=== PATIENT | female | born 1965 | race Caucasian/White ===

== ENCOUNTER 2019-05-24 09:51 | Outpatient (CLI) | payer BC, SELFPAY ==
--- NOTE | 2019-05-24 10:01 | XR_ITS ---
WS: [id number] KUB, 05/24/2019 Clinical Data: NEPHROLITHIASIS Comparison: None. Findings: No abnormal intraabdominal masses or calcifications are seen. There is no dilatated small bowel or ev idence of obstruction. There is a large amount of fecal material which obscures detail over the kidneys. There are clips in the right upper quadrant from a cholecystectomy. There is a gentle levoscoliosis. There are phlebolit hs in the true pelvis with a partially filled bladder. XR/XR abdomen 1V* [id number] Impression: Negative KUB.
== END 2019-05-24 09:52 | disposition home or self-care (01) ==
LOC: RAD 09:55
PROVIDERS: Family Provider Electrodiagnostic Medicine; PCP Electrodiagnostic Medicine; Visit Provider Electrodiagnostic Medicine
DX: N39.0 Urinary tract infection, site not specified (principal); N20.0 Calculus of kidney
CPT/HCPCS: 74018

== ENCOUNTER 2019-08-30 20:08 | Emergency (ER) | payer BC, SELFPAY ==
[2019-08-30 20:17] VITALS: BP 104/69; PULSE 102; RESP 18; TEMP 36.5; O2SAT 96; BMI 22.3
--- NOTE | 2019-08-30 20:33 | XR_ITS ---
WS: [id number] CHEST XRAY TECHNIQUE: Portable chest. CLINICAL INFORMATION: cough/congestion COMPARISON: March 22, 2019 FINDINGS: Heart: Normal cardiac silhouette. Lungs: Moderate chronic emphysematous changes. Mild chronic interstitial thickening. No acute pulmona ry infiltrates. Bones: Mild thoracic curve convex right. XR/XR chest 1V portable [id number] IMPRESSION: No acute chest findings
--- NOTE | 2019-08-30 20:34 | W.ED.GENADLT ---
HPI - General Adult General: Chief complaint: General Medical Stated complaint: HEART RACING/L SIDE PAIN Time Seen by Provider: 08/30/19 20:32 Source: patient Mode of arrival: ambulatory Limitations: no limitations History of Present Illness: HPI narrative: Patient is a 54-year-old female who presents to ED today with 2 separate complaints. She complains of left upper quadrant pain over the past 5 to 7 days. She states pain has been intermittent. She states pain seems to be improved with lying flat and worse with sitting up and standing. She has not noticed a correlation with eating in her pain. She describes some nausea without vomiting. She has been having normal bowel movements. She does describe some darker urine over the past few days. Patient second complaint is a complaint of heart racing and palpitations after drinking a loaded tea . She states symptoms began around 3:30 PM this afternoon. Patient denies history of heart disease. Onset (ago): day(s) Associated symptoms: Reports nausea and palpitations; Deny chest pain, dyspnea, rash, syncope or vomiting Treatments prior to arrival: none Review of Systems Const: Denies: fever or chills Eyes: Denies: change in vision, blurry vision or photophobia Card: Reports: palpitations; Denies: chest pain, irregular heart rhythm, edema, swelling of feet/ankles, lightheadedness, syncope, pre-syncope, shortness of breath on exertion, shortness of breath when lying down, leg pain with exertion or bluish discoloration of hands/feet Resp: Denies: shortness of breath, productive cough, non-productive cough, coughing up blood or chest congestion GI: Reports: abdominal pain and nausea; Denies: vomiting, vomiting blood, heartburn/indigestion, diarrhea, constipation, change in bowel habits, change in stool character, blood in stool, black tarry stool, white/light colored stool or fatty stool : Denies: flank pain, difficulty urinating, painful urination, urinary frequency, urinary urgency, urinary hesitancy, vaginal odor, vaginal bleeding or vaginal discharge Musc: Denies: neck pain or back pain Skin/Breast: Denies: rash Neuro: Denies: numbness in extremities, weakness in extremities, changes in sensation, lack of coordination, difficulty walking or dizziness PFSH ED PFSH: Social History Smoking and tobacco status: never smoked Physical Exam Const: COMMON NORMALS: no apparent distress, average body habitus, oriented x3, no limitations, healthy appearing, alert and well nourished HENMT: COMMON NORMALS: normocephalic and head/scalp atraumatic HEAD & SCALP: normocephalic and atraumatic Resp: COMMON NORMALS: normal respiratory effort and clear to auscultation bilaterally AUSCULTATION: clear to auscultation bilaterally Cardio: COMMON NORMALS: regular rate and regular rhythm RATE: regular rate RHYTHM: regular rhythm GI: COMMON NORMALS: soft to palpation, no hepatosplenomegaly and no masses AUSCULTATION: Yes normoactive bowel sounds PALPATION: Yes soft, Yes tender Details: LUQ and Yes no hepatosplenomegaly : COMMON NORMALS: Yes no CVA tenderness BLADDER/KIDNEY EXAM: Yes no CVA tenderness Back/Pelvis: COMMON NORMALS: no CVA tenderness Extremity: COMMON NORMALS: normal to inspection Neuro: EPIFANIO COMA SCALE: document GCS findings [place] coma scale eye opening: Spontaneous Epifanio coma scale verbal response: Orientated [place] coma scale motor response: Obey commands [place] coma scale total score: 15 COMMON NORMALS: oriented x3, moves all extremities, no focal motor deficits and no sensory deficits noted SENSORIUM/ORIENTATION: Yes alert Skin: COMMON NORMALS: no rashes or lesions noted GENERAL SKIN EXAM: no rashes or lesions noted Course Vital Signs: Vital signs: Vital Signs Temperature 97.7 F 08/30/19 20:17 Pulse Rate 78 08/30/19 22:53 Respiratory Rate 18 08/30/19 22:53 Blood Pressure 124/74 08/30/19 22:53 Pulse Oximetry 97 08/30/19 22:53 MDM - General Adult MDM Narrative: Medical decision making narrative: Patient's cardiac work-up here looks good. Symptoms of her palpitations started approximately 7 hours ago so there is no need for repeat troponins. She has not had sustained tachycardia (she was very mildly tachycardic initially upon arrival) or palpitations on the rhythm monitor while here. Patient's labs are overall non-concerning. She does have a mildly elevated lipase at 80. She was offered pain medications but declines these stating her pain is not severe. She is not having nausea or vomiting. Patient seems to be stable to treat at home for some mild pancreatitis. Return to ED precautions given. Lab Data: Labs: Lab Results 08/30/19 08/30/19 08/30/19 Range/Units 21:13 21:13 21:13 WBC 6.5 (4.0-10.0) 10^3/ uL RBC 3.88 L (4.1-5.3) 10^6/u L Hgb 13.1 (11.5-15.3) g/dL Hct 37.8 (37.0-47.0) % MCV 97.4 (81-99) fL MCH 33.8 (28.0-34.0) pg MCHC 34.7 (30.0-36.0) g/dL RDW 13.2 (12.1-15.1) % Plt Count 199 (130-400) 10^3/c mm MPV 10.9 H (7.4-10.4) fL Neut % (Auto) 54.3 % Lymph % (Auto) 36.2 % [place] % (Auto) 6.2 % Eos % (Auto) 2.2 % Baso % (Auto) 0.9 % Neut # (Auto) 3.5 (1.8-7.7) 10^3/u L Lymph # (Auto) 2.4 (0.8-4.8) 10^3/u L [place] # (Auto) 0.4 (0.2-0.9) 10^3/u L Eos # (Auto) 0.1 (0.0-0.8) 10^3/u L Baso # (Auto) 0.1 (0.0-0.1) 10^3/u L Nucleated RBC % (a uto) 0 % Nucleated RBCs # 0.0 /100WBC Sodium 141 (136-145) mmol/L Potassium 4.0 (3.5-5.1) mmol/L Chloride 105 (98-107) mmol/L Carbon Dioxide 23 (22-29) mmol/L Anion Gap 17.0 (5-19) BUN 16 (6-20) mg/dL Creatinine 0.9 (0.5-0.9) mg/dL GFR Calculation 65.0 L (90-130) mL/min Glucose 108 (65-115) mg/dL Calculated Osmolal ity 289 (285-295) mOsm/k g Calcium 9.5 (8.5-10.5) mg/dL Total Bilirubin 0.2 (0.15-1.2) mg/dL AST 13 (0-32) U/L ALT 9 (0-33) U/L Alkaline Phosphata se 61 (35-105) IU/L Troponin T Baselin e 7 (0-10) ng/mL Total Protein 6.1 L (6.6-8.7) g/dL Albumin 4.0 (3.5-5.2) g/dL Globulin 2.1 (1.3-4.6) g/dL Lipase 80 H (13-60) U/L Urine Color (Yellow) Urine Appearance (CLEAR) Urine pH (5-7) Ur Specific Gravit y (1.005-1.030) Urine Protein (Negative) Urine Glucose (UA) (Normal) Urine Ketones (Negative) Urine Blood (Negative) Urine Nitrate (Negative) Urine Bilirubin (NEGATIVE) Urine Urobilinogen (Negative) mg/dL Ur Leukocyte Chayito ase (Negative) 08/30/19 Range/Units 21:13 WBC (4.0-10.0) 10^3/ uL RBC (4.1-5.3) 10^6/u L Hgb (11.5-15.3) g/dL Hct (37.0-47.0) % MCV (81-99) fL MCH (28.0-34.0) pg MCHC (30.0-36.0) g/dL RDW (12.1-15.1) % Plt Count (130-400) 10^3/c mm MPV (7.4-10.4) fL Neut % (Auto) % Lymph % (Auto) % [place] % (Auto) % Eos % (Auto) % Baso % (Auto) % Neut # (Auto) (1.8-7.7) 10^3/u L Lymph # (Auto) (0.8-4.8) 10^3/u L [place] # (Auto) (0.2-0.9) 10^3/u L Eos # (Auto) (0.0-0.8) 10^3/u L Baso # (Auto) (0.0-0.1) 10^3/u L Nucleated RBC % (a uto) % Nucleated RBCs # /100WBC Sodium (136-145) mmol/L Potassium (3.5-5.1) mmol/L Chloride (98-107) mmol/L Carbon Dioxide (22-29) mmol/L Anion Gap (5-19) BUN (6-20) mg/dL Creatinine (0.5-0.9) mg/dL GFR Calculation (90-130) mL/min Glucose (65-115) mg/dL Calculated Osmolal ity (285-295) mOsm/k g Calcium (8.5-10.5) mg/dL Total Bilirubin (0.15-1.2) mg/dL AST (0-32) U/L ALT (0-33) U/L Alkaline Phosphata se (35-105) IU/L Troponin T Baselin e (0-10) ng/mL Total Protein (6.6-8.7) g/dL Albumin (3.5-5.2) g/dL Globulin (1.3-4.6) g/dL Lipase (13-60) U/L Urine Color Yellow (Yellow) Urine Appearance Clear (CLEAR) Urine pH 6 (5-7) Ur Specific Gravit y 1.020 (1.005-1.030) Urine Protein Neg (Negative) Urine Glucose (UA) Norm (Normal) Urine Ketones Negative (Negative) Urine Blood Neg (Negative) Urine Nitrate Negative (Negative) Urine Bilirubin Neg (NEGATIVE) Urine Urobilinogen 2+ (Negative) mg/dL Ur Leukocyte Chay[place] ase Negative (Negative) EKG Data^: EKG 1: EKG interpretation date: 08/30/19 EKG interpretation time: 20:15 Interpretation: Sinus tachycardia Rate [address] elevation or depression noted Reviewed along with Dr. Guerrero Discharge Plan Discharge Patient Disposition: Home, Self-Care Clinical Impression: Acute pancreatitis Qualifiers: Pancreatitis type: unspecified pancreatitis type Acute pancreatitis complication: no infection or necrosis Qualified Code(s): K85.90 - Acute pancreatitis without necrosis or infection, unspecified Condition: Stable Prescriptions: New hydrocodone-acetaminophen 5-325 mg tablet 1 tab PO Q6H PRN (Reason: pain) Qty: 14 RF: 0 Zofran 4 mg tablet 4 mg PO Q6H PRN (Reason: nausea and vomiting) Qty: 14 RF: 0 No Action alprazolam [Xanax] 0.5 mg Tablet 0.5 mg PO BID PRN (Reason: Anxiety) RF: 0 pantoprazole 40 mg Tablet,Delayed Release (Dr/Ec) 40 mg PO BID RF: 0 Discharge Orders: Discharge Order (Routine); Ordered 08/30/19 Ordered By: Renee Aguilera Referrals: Ken Means, DO [Primary Care Provider] - Discharge Diet: Clear Liquid Discharge Activity: Increase activity as tolerated Patient Instructions: Pancreatitis (ED), Pancreatitis Activity Restrictions/Additional Instructions: As discussed I would like you to do a clear liquid diet over the next 48 hours and slowly advance diet as tolerated. I have given you pain medications and nausea medications you may use as needed. Please return to the emergency department for worsening pain, inability to keep down your medications, frequent nausea/vomiting, fevers, or any other concerns you may have. Stand Alone Forms: Work/School Release Discharge Date/Time: 08/30/19 22:53 Coding Level of Care Code ED [employer]ner for Ericka Fwd Exam Comprehensive
[2019-08-30] MEDS: ondansetron 2 mg/ML SDV 2 mL 4 MG IVP (21:08)
[2019-08-30] MEDS: sodium chloride 0.9% 1,000 ML 999 ML IV (21:10)
[2019-08-30 21:30] LABS: Add Urine Microscopic? NO; Basophils # 0.1 10^3/uL (0.0-0.1); Basophils % 0.9 %; Eosinophils # 0.1 10^3/uL (0.0-0.8); Eosinophils % 2.2 %; Hematocrit 37.8 % (37.0-47.0); Hemoglobin 13.1 g/dL (11.5-15.3); Lymphocytes # 2.4 10^3/uL (0.8-4.8); Lymphocytes % 36.2 %; Mean Corpuscular HGB Conc 34.7 g/dL (30.0-36.0); Mean Corpuscular Hemoglobin 33.8 pg (28.0-34.0); Mean Corpuscular Volume 97.4 fL (81-99); Mean Platelet Volume 10.9 fL (7.4-10.4); Monocytes # 0.4 10^3/uL (0.2-0.9); Monocytes % 6.2 %; Neutrophils # 3.5 10^3/uL (1.8-7.7); Neutrophils % 54.3 %; Nucleated Red Blood Cells % 0 %; Platelet Count 199 10^3/cmm (130-400); Red Blood Count 3.88 10^6/uL (4.1-5.3); Red Cell Distribution Width 13.2 % (12.1-15.1); White Blood Count 6.5 10^3/uL (4.0-10.0)
[2019-08-30 21:59] LABS: Bilirubin Urine Neg (NEGATIVE); Blood Urine Neg (Negative); Glucose Urine UA Norm (Normal); Ketones Urine Negative (Negative); Leukocyte Esterase Urine Negative (Negative); Nitrate Urine Negative (Negative); Protein Urine Neg (Negative); Urine Appearance Clear (CLEAR); Urine Color Yellow (Yellow); Urobilinogen Urine 2+ mg/dL (Negative); pH Urine 6 (5-7)
[2019-08-30 22:00] LABS: Troponin(5th) Baseline 7 ng/mL (0-10)
[2019-08-30 22:40] LABS: Alanine Aminotransferase 9 U/L (0-33); Alkaline Phosphatase 61 IU/L (35-105); Aspartate Amino Transferase 13 U/L (0-32); Blood Urea Nitrogen 16 mg/dL (6-20); Calcium 9.5 mg/dL (8.5-10.5); Carbon Dioxide 23 mmol/L (22-29); Chloride 105 mmol/L (98-107); Globulin 2.1 g/dL (1.3-4.6); Glucose 108 mg/dL (65-115); Lipase 80 U/L (13-60); Osmolality Calculated 289 mOsm/kg (285-295); Sodium 141 mmol/L (136-145); Total Bilirubin 0.2 mg/dL (0.15-1.2); Total Protein 6.1 g/dL (6.6-8.7)
[2019-08-30 22:53] VITALS: BP 124/74; PULSE 78; RESP 18; O2SAT 97
== END 2019-08-30 22:53 | disposition home or self-care (01) ==
PROVIDERS: Emergency Provider Physician Assistant; Family Provider Electrodiagnostic Medicine; PCP Electrodiagnostic Medicine
DX: K85.90 Acute pancreatitis without necrosis or infection, unspecified (principal)
CPT/HCPCS: 12345; 71045; 80053; 81003; 83690; 84484; 85025; 96360; 96361; 96374; 96375; 99283; 99284; J2405; J7030

== ENCOUNTER 2019-09-09 08:36 | Outpatient (CLI) | payer BC, SELFPAY ==
--- NOTE | 2019-09-09 | CT_ITS ---
WS: [id number] CT ABDOMEN CONTRAST TECHNIQUE: Contrast enhanced CT of the abdomen with coronal and sagittal reformatted images. CLINICAL INFORMATION: ACUTE PANCREATITIS COMPARISON: April 10, 2017 DLP: 599.[address] scans at [facility] use at least one of these dose optimization techniques: automat ed exposure control; mA and/or kV adjustment per patient size (includes targeted exams where dose is matched to clinical indication); or iterative reconstruction. FINDINGS: Liver is normal in appearance. Prior cholecystectomy. Mild postcholecystectomy intrahepatic ductal di latation. Portal veins and splenic vein are patent. Normal spleen. Adrenal glands are normal. Normal bilateral renal parenchymal enhancement. Cortical scarring right kidney. Normal caliber abdominal aor ta. Mild atheromatous disease in the distal abdominal aorta. Prior postoperative changes gastric slee ve. Normal proximal duodenum. Small esophageal hiatal hernia unchanged. Normal pancreatic parenchymal enhancement. Normal splenic vein. No evidence of peripancreatic inflamm atory stranding or edema. No pseudocyst. No retroperitoneal or periaortic lymphadenopathy. Normal partially visualized colon and partially vis ualized small bowel. Lung bases are well aerated. Grade 1 anterolisthesis L5 on S1 with degenerative spondylolysis. CT/CT abdomen w con* [id number] IMPRESSION: 1. Normal pancreatic parenchymal enhancement. No significant inflammatory stra nding or edema. No pancreatic pseudocyst. 2. Normal splenic vein and common bile duct. 3. Prior cholecystectomy. 4. Prior gastric sleeve with small hiatal hernia unchanged. 5. Normal renal parenchymal enhancement. No hydronephrosis. 6. Stable spondylolysis L5-S1 with grade 1 anterolisthesis.
[2019-09-09] MEDS: iohexol 300 mg/mL 50 mL Btl PO (08:56)
[2019-09-09] MEDS: iohexol 300 mg/mL 100 mL Btl IV (09:44)
== END 2019-09-09 08:37 | disposition home or self-care (01) ==
LOC: RADWPI 08:39
PROVIDERS: Family Provider Electrodiagnostic Medicine; PCP Electrodiagnostic Medicine; Visit Provider Electrodiagnostic Medicine
DX: R10.9 Unspecified abdominal pain (principal); K85.90 Acute pancreatitis without necrosis or infection, unspecified; E03.9 Hypothyroidism, unspecified; Z98.84 Bariatric surgery status; Z90.49 Acquired absence of other specified parts of digestive tract; K44.9 Diaphragmatic hernia without obstruction or gangrene; M47.816 Spondylosis without myelopathy or radiculopathy, lumbar region
CPT/HCPCS: 74160; Q9967

== ENCOUNTER 2019-10-06 08:27 | Outpatient (CLI) | payer BC, SELFPAY ==
--- NOTE | 2019-10-06 09:00 | FL_ITS ---
WS: [id number] ABDOMEN 1 VIEW(S) HISTORY: GERD COMPARISON: None available. Marked fecal retention throughout the colon. No obstructive pattern. Prior cholecystectomy. Surgical clips noted in the LEFT upper abdomen. Rotoscoliosis with convexity to the RIGHT. FL/FL upper GI w air* [id number] IMPRESSION: Moderate fecal retention and prior cholecystectomy.
== END 2019-10-06 08:28 | disposition home or self-care (01) ==
LOC: RAD 08:32
PROVIDERS: PCP Electrodiagnostic Medicine; Visit Provider Surgery
DX: K21.9 Gastro-esophageal reflux disease without esophagitis (principal); K59.00 Constipation, unspecified; K44.9 Diaphragmatic hernia without obstruction or gangrene
CPT/HCPCS: 74246

== ENCOUNTER 2019-10-11 08:36 | Day surgery (SDC) | payer BC, SELFPAY ==
[2019-10-11 09:09] VITALS: BP 106/72; PULSE 95; RESP 18; TEMP 37.1; O2SAT 98
--- NOTE | 2019-10-11 09:28 | ANES.PREANE2 ---
Pre-Anesthetic Assessment Pre-Anesthetic Assessment: Height/Weight: Height 1.63 m Weight 58.967 kg Temp Pulse Resp BP Pulse Ox 98.8 F 95 18 106/72 98 10/11/19 09:09 10/11/19 09:09 10/11/19 09:09 10/11/19 09:09 10/11/19 09:09 Preop Diagnosis: Abdominal pain Proposed Procedure: Operation Date: 10/11/19 10:15 Proposed Procedures p egd with dilation 15596/R13.10 w/ Balloon(Not Applicable) - Kam Irene MD Last intake: Intake Last Liquid Date 10/10/19 Last Liquid Time 23:00 Social: Social History: No alcohol and No tobacco Exam: Pre-Anes Outpt Exam: alert, oriented x 3, clear to auscultation bilaterally and regular rate & rhythm Airway: Submandibular: WNL Cervical ROM: WNL MP: 2 Dentition: Other (teeth ok) History/ROS: No significant history except as noted Pulmonary: Pulmonary: None reported CV/HEM: CV/HEM: Afib (occ episoides of afib) : : None reported Hepatic: Hepatic: None reported Comments: h/o pancreatitis GI: GI: GERD Metabolic: Metabolic: None reported Musc/skel: Musc/skel: Lower Back Pain Neuropsych: Neuropsych: Anxiety Anesthetic Plan: ASA status: 3 Anesthesia: Anesthesia Evaluation and General Risk of > 500 ml blood loss (7ml/kg in children): No PFSH Anesthesia PFSH: Medical History Abdominal pain GERD (gastroesophageal reflux disease) Surgical History History of bilateral breast reduction surgery History of colonoscopy History of esophagogastroduodenoscopy (EGD) History of laparoscopic cholecystectomy History of sleeve gastrectomy (~2016) Family History Denies family history of Anesthesia complication Bleeding disorder Social History Smoking and tobacco status: never smoked Data Anesthesia Cardiac Studies: No Data to Display
[2019-10-11] MEDS: sodium chloride 0.9% 1,000 ML 30 ML IV (09:29)
--- NOTE | 2019-10-11 10:34 | W.PM.OPSUD ---
Surgery/Procedure H&P Update DATE OF PROCEDURE: October 11, 2019 DATE H&P PERFORMED: 10/27/19 H&P UPDATE INFORMATION: I have reviewed H&P completed within last 30 days, I have examined patient prior to procedure and No changes to prior documentation PREOP DIAGNOSIS: Abdominal pain PRIMARY INDICATION FOR PROCEDURE: The same. PLANNED PROCEDURE: Operation Date: 10/11/19 10:15 Proposed Procedures p egd with dilation 41193/R13.10 w/ Balloon(Not Applicable) - Kam Irene MD
[2019-10-11 11:16] LABS: Blood Urine Trace (Negative); Glucose Urine UA Norm (Normal); Ketones Urine Negative (Negative); Nitrate Urine Positive (Negative); Protein Urine Neg (Negative); Specific Gravity, Urine 1.015 (1.005-1.030); Urine Appearance Hazy (CLEAR); Urine Color Yellow (Yellow); pH Urine 6.5 (5-7)
[2019-10-11 11:17] LABS: Add Urine Microscopic? YES; Bilirubin Urine Neg (NEGATIVE); Leukocyte Esterase Urine 1+ (Negative); Urobilinogen Urine Norm (Negative)
[2019-10-11 11:19] LABS: Add Urine Culture? Yes; Bacteria Urine 4+; Squamous Epithelial Cell Urine 0-4 (0-5); WBC Urine >100 /hpf (0-5)
[2019-10-11 11:30] VITALS: BP 102/65; PULSE 81; RESP 18; TEMP 36.5; O2SAT 98
[2019-10-11 11:43] LABS: Calcium 10.3 mg/dL (8.5-10.5)
[2019-10-11 11:50] VITALS: BP 104/72; PULSE 69; RESP 16; TEMP 36.4; O2SAT 99
[2019-10-11 11:50] LABS: Estmated Average Glucose 108; Hemoglobin A1C 5.4 % (4.0-6.0)
[2019-10-11 12:04] LABS: Alanine Aminotransferase 10 U/L (0-33); Albumin Level 3.9 g/dL (3.5-5.2); Alkaline Phosphatase 60 IU/L (35-105); Aspartate Amino Transferase 13 U/L (0-32); Chol HDL Ratio 3.31 mg/dL (0.0-4.40); Cholesterol 179 mg/dL (0-200); Ferritin 25 ng/mL (15-150); Globulin 2.7 g/dL (1.3-4.6); HDL Cholesterol 54 mg/dL (60-100); Iron 108 ug/dL (37-145); LDL Cholesterol Calculated 108 mg/dL (50-129); Magnesium 2.1 mg/dL (1.7-2.3); Percent Saturation 41.3 % (20-50); Phosphorus 3.7 mg/dL (2.5-4.5); Thyroid Stimulating Hormone 1.32 uIU/mL (0.27-4.20); Total Bilirubin 0.4 mg/dL (0.15-1.2); Total Iron Binding Capacity 261 mcg/dl; Total Protein 6.6 g/dL (6.6-8.7); Triglycerides 86 mg/dL (0-150); Unsaturated Iron Binding 153 ug/dL (112-347); Vitamin B12 736 pg/mL (232-1245)
[2019-10-11 13:55] LABS: Parathyroid Hormone 36.4 pg/mL (15-65)
[2019-10-11 14:26] LABS: Folate Level 15.3 ng/mL (4.8-37.3)
[2019-10-12 13:03] LABS: H. Pylori / CLO Test Negative
[2019-10-15 11:35] LABS: Vitamin B1(Thiamin) Plas/Ser 9 nmol/L (8-30)
[2019-10-15 12:01] LABS: Zinc Level, Serum or Plasma 57 mcg/dL (60-130)
[2019-10-15 16:41] LABS: Vit D 1,25 (Oh)2, Total 52 pg/mL (18-72); Vit D2 1,25 (Oh)2 <8 pg/mL; Vit D3 1,25 (Oh)2 52 pg/mL
== END 2019-10-11 12:31 | disposition home or self-care (01) ==
PROVIDERS: PCP Electrodiagnostic Medicine; Visit Provider Surgery
DX: R13.10 Dysphagia, unspecified (principal); K21.0 Gastro-esophageal reflux disease with esophagitis; K44.9 Diaphragmatic hernia without obstruction or gangrene; K29.70 Gastritis, unspecified, without bleeding; I48.91 Unspecified atrial fibrillation; Z98.84 Bariatric surgery status
CPT/HCPCS: 12345; 43239; 80061; 80076; 81001; 82310; 82607; 82728; 82746; 83036; 83540; 83550; 83735; 83970; 84100; 84443; 87077; J2001; J2704; J7030

== ENCOUNTER → 2019-12-30 08:50 | Outpatient (BNVA) | payer BC, SELFPAY | PROVIDERS: PCP Electrodiagnostic Medicine; Visit Provider Psychiatry & Neurology Psychiatry | DX: F41.1 Generalized anxiety disorder (principal); F33.1 Major depressive disorder, recurrent, moderate; F17.200 Nicotine dependence, unspecified, uncomplicated | CPT/HCPCS: 99204 ==

== ENCOUNTER → 2020-02-13 09:00 | Outpatient (BNVA) | payer BC, SELFPAY | PROVIDERS: PCP Electrodiagnostic Medicine; Visit Provider Psychiatry & Neurology Psychiatry | DX: F41.1 Generalized anxiety disorder (principal); F33.9 Major depressive disorder, recurrent, unspecified | CPT/HCPCS: 99213 ==

== ENCOUNTER → 2020-03-09 11:09 | Outpatient (BNVA) | payer BC, SELFPAY | PROVIDERS: PCP Electrodiagnostic Medicine; Visit Provider Orthopaedic Surgery | DX: M47.897 Other spondylosis, lumbosacral region (principal); M54.5 Low back pain | CPT/HCPCS: 72120 ==

== ENCOUNTER 2020-04-03 12:40 | Outpatient (RCR) | payer BC, SELFPAY | END 2020-04-09 23:59 | disposition home or self-care (01) | LOC: SPT 12:40 | PROVIDERS: PCP Electrodiagnostic Medicine; Referring Provider Orthopaedic Surgery; Visit Provider Orthopaedic Surgery | DX: M54.9 Dorsalgia, unspecified (principal) | CPT/HCPCS: 97161 ==

== ENCOUNTER → 2022-03-28 10:18 | Outpatient (BNVA) | payer OTHER, SELFPAY | PROVIDERS: PCP Family Medicine; Visit Provider Family Medicine | DX: R30.9 Painful micturition, unspecified (principal); Z98.84 Bariatric surgery status; K21.9 Gastro-esophageal reflux disease without esophagitis; F41.1 Generalized anxiety disorder; F17.200 Nicotine dependence, unspecified, uncomplicated; R91.8 Other nonspecific abnormal finding of lung field; G47.33 Obstructive sleep apnea (adult) (pediatric); I48.0 Paroxysmal atrial fibrillation; R30.0 Dysuria; R51.9 Headache, unspecified | CPT/HCPCS: 80053; 81000; 82306; 82607; 82728; 83540; 84443; 84630; 85025 ==

== ENCOUNTER 2022-08-12 12:09 | Outpatient (CLI) | payer OTHER, SELFPAY ==
--- NOTE | 2022-08-12 12:16 | CT_ITS ---
WS: [id number] LDCT LUNG CANCER SCREENING HISTORY: lung cancer screening TECHNIQUE: Axial imaging performed from the apices to 1 cm below the costophrenic angles. Coronal and sagittal reformats are submitted with axial MIP series. All CT scans at [facility] use at least one of these dose optimization techniques: automated exposure control; mA and/or kV adjustment per patient size (includes targeted exams where dose is matched to clinical indication); or iterativ e reconstruction. DLP: 79.01 mGy.cm DIvol: Mean CTDIvol: 1.60 (mGy) COMPARISON: None available. Diagnostic quality: Satisfactory Lungs: Long-term stability 5 mm LEFT lower lobe subpleural nodule. No new nodule or mass. No endobron chial lesions. Heart: Normal size heart with no pericardial effusion.. Other findings: Coronary artery atherosclerosis. Mild atherosclerosis aorta. No mediastinal or hilar lymph nodes. Hiatal hernia. Gastric bypass. Prior cholecystectomy. CT/CT lung screening [id number] IMPRESSION: LUNG-RADS: 2-Benign Appearance or Behavior FOLLOW UP: 12 Month: Continue annual screening with LDCT OTHER FINDINGS (S MODIFIER): None.
== END 2022-08-12 12:10 | disposition home or self-care (01) ==
LOC: RAD 12:12
PROVIDERS: PCP Family Medicine; Visit Provider Family Medicine
DX: Z12.2 Encounter for screening for malignant neoplasm of respiratory organs (principal); F17.200 Nicotine dependence, unspecified, uncomplicated
CPT/HCPCS: 71271